=== PATIENT | male | born 1985 | race Caucasian/White ===

== ENCOUNTER 2016-05-01 22:32 | Outpatient (CLI) | payer OTHER | END 2016-05-01 22:33 | disposition home or self-care (01) | DX: G47.33 Obstructive sleep apnea (adult) (pediatric) (principal); Z68.26 Body mass index [BMI] 26.0-26.9, adult ==

== ENCOUNTER 2016-06-09 14:08 | Outpatient (CLI) | payer OTHER | END 2016-06-09 14:09 | disposition home or self-care (01) | DX: G47.33 Obstructive sleep apnea (adult) (pediatric) (principal) ==

== ENCOUNTER 2016-11-25 17:08 | Outpatient (CLI) | payer OTHER ==
[2016-12-02 18:17] LABS: TEST RESULT REPORT (())
== END 2016-11-25 17:09 | disposition home or self-care (01) ==
LOC: LAB 17:08
PROVIDERS: ATTEND Internal Medicine
DX: T14.8 Other injury of unspecified body region (principal)
CPT/HCPCS: 36415; 81599; 86618

== ENCOUNTER → 2016-11-25 | Outpatient (CLI) | payer OTHER | LOC: LAB 08:00 | PROVIDERS: ATTEND Internal Medicine | DX: T14.8 Other injury of unspecified body region (principal) | CPT/HCPCS: 86617 ==

== ENCOUNTER 2017-04-06 07:54 | Outpatient (CLI) | payer BC ==
[2017-04-06 08:28] LABS: CHOL/HDL RATIO 3.9 (<5.0); CHOLESTEROL 221 mg/dL; HDL CHOLESTEROL 56 mg/dL; LDL/HDL RATIO 2.4 (<3.6); TRIGLYCERIDES 141 mg/dL; VLDL CHOLESTEROL 28 mg/dL
== END 2017-04-06 07:55 | disposition home or self-care (01) ==
LOC: LAB 07:54
PROVIDERS: ATTEND Internal Medicine
DX: E55.9 Vitamin D deficiency, unspecified (principal); Z79.899 Other long term (current) drug therapy; E78.5 Hyperlipidemia, unspecified; A69.20 Lyme disease, unspecified
CPT/HCPCS: 36415; 80061; 82306; 86617

== ENCOUNTER 2019-04-19 14:12 | Outpatient (CLI) | payer BC ==
--- NOTE | 2019-04-20 09:21 | XRAY Report ---
Reason: PAIN IN LEFT HAND, LOCALIZED SWELLING Procedure Date: 04/19/2019 Accession Number: [id number] / [id number] Procedure: XR - Hand 2 View LT CPT Code: Final Report FULL RESULT: EXAM: LEFT HAND RADIOGRAPHY EXAM DATE: 04/19/2019 02:27 PM. CLINICAL HISTORY: PAIN IN LEFT HAND, LOCALIZED SWELLING. 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 COMPARISON: None. TECHNIQUE: 2 views. FINDINGS: Bones: Normal. No fractures or bone lesions. Joints: Normal. No subluxations. Soft Tissues: Normal. No soft tissue swelling. IMPRESSION: Normal hand 2 view radiography. [facility]
== END 2019-04-19 14:13 | disposition home or self-care (01) ==
LOC: DI 14:12
PROVIDERS: ATTEND Family Medicine
DX: M79.642 Pain in left hand (principal)

== ENCOUNTER 2019-06-17 08:13 | Outpatient (CLI) | payer BC ==
[2019-06-17 08:40] LABS: BASOPHILS % (AUTO) 0.6 %; EOSINOPHILS # (AUTO) 0.2 10^3/uL (0.0-0.7); EOSINOPHILS % (AUTO) 3.8 %; HGB - HEMOGLOBIN 15.6 g/dL (14.0-18.0); MEAN CORPUSCULAR HEMOGLOBIN 28.9 pg (27.0-31.0); MEAN CORPUSCULAR HGB CONC 33.3 g/dL (32.0-36.0); MEAN CORPUSCULAR VOLUME 86.7 fL (80.0-94.0); MEAN PLATELET VOLUME 8.8 fL (7.4-11.4); MONOCYTES # (AUTO) 0.6 10^3/uL (0.0-1.0); NEUTROPHILS # (AUTO) 2.5 10^3/uL (1.5-6.6); NEUTROPHILS % (AUTO) 46.4 %; PLT - PLATELET COUNT 236 10^3/uL (130-450); RED CELL DISTRIBUTION WIDTH 13.6 % (12.0-15.0); WHITE BLOOD COUNT 5.3 x10^3/uL (4.8-10.8)
[2019-06-17 08:56] LABS: ALBUMIN 4.5 g/dL (3.2-5.5); ALBUMIN/GLOBULIN RATIO 1.6 (1.0-2.2); ALKALINE PHOSPHATASE 77 IU/L (42-121); ALT ALANINE AMINOTRANSFERASE 44 IU/L (10-60); AST ASPARTATE AMINOTRANSFERASE 23 IU/L (10-42); BILIRUBIN,TOTAL 1.6 mg/dL (0.2-1.0); BUN - BLOOD UREA NITROGEN 17 mg/dL (6-20); CALCIUM 9.2 mg/dL (8.5-10.3); CARBON DIOXIDE - CO2 28 mmol/L (21-32); CHLORIDE 103 mmol/L (101-111); CHOL/HDL RATIO 4.9 (<5.0); CHOLESTEROL 216 mg/dL; GFR - MDRD 86 (>89); GLUCOSE 100 mg/dL (70-100); HDL CHOLESTEROL 44 mg/dL; LDL CHOLESTEROL,CALCULATED 148 mg/dL; LDL/HDL RATIO 3.4 (<3.6); SODIUM 139 mmol/L (135-145); TOTAL PROTEIN 7.3 g/dL (6.7-8.2); VLDL CHOLESTEROL 24 mg/dL
== END 2019-06-17 08:14 | disposition home or self-care (01) ==
LOC: LAB 08:13
PROVIDERS: ATTEND Family Medicine
DX: G47.33 Obstructive sleep apnea (adult) (pediatric) (principal); E78.5 Hyperlipidemia, unspecified
CPT/HCPCS: 36415; 80053; 80061; 83721; 84443; 85025

== ENCOUNTER 2020-01-25 13:26 | Outpatient (CLI) | payer OTHER ==
[2020-01-25 14:11] VITALS: BP 107/64
--- NOTE | 2020-01-25 14:11 | SLEEP CARE CONSULTATION ---
Information from patient questionnaire entered by Christiane Galvan. I have reviewed and concur with the information entered by Christiane Galvan. This document represents the service I personally performed and the decisions made by me, Berna Ambrosio ARNP. History of Present Illness Service Date and Time: 01/25/2020 1326 Reason for Visit: New patient, Previously diagnosed sleep apnea (mild - AHI 6.4) Chief Complaint: reports: Unrefreshed sleep, Snoring, Observed pauses in breathing, Other (breathing problems, don't sleep well; previously diagnosed 3 yrs, positional therapy). denies: Insomnia, Excessive daytime sleepiness, Fatigue, Frequent awakenings at night Date of Onset: 5 years maybe Usual bedtime: 10 pm Time it takes to fall asleep: not long at all Snores at night: Yes Observed to quit breathing while asleep: Yes Sleeps alone due to snoring: No Number of times waking at night: a couple Reasons for waking at night: reports: Other (not sure). denies: Choking, Snoring, Gasping for air Toss, Turn, or Twitch while sleeping: Yes Recalls having dreams: No (not often) Usually gets out of bed at: 5:30 am Feels refreshed in the morning: No Morning headache: No Sleepy or fatigued during the day: Yes Ever fallen asleep while driving: No Takes day naps: No Dreams during day naps: No Prior sleep studies: Yes Year and Where: 2016 - [facility] Type of Sleep Study: Polysomnography Additional HPI information: I had the pleasure of seeing DARRYL DOWNING today regarding the possibility of him having a sleep disorder. His current complaints are snoring, breathing problems and not sleeping well. He states 3 years ago he had a sleep study done here at [facility] and was found to have mild obstructive sleep apnea. He states he opted to sleep on his side since he was not as bad when sleeping non-supine. He comes in today because he has difficulty staying on his side. His is having to prod him in the middle of night due to snoring on his back and pauses in breathing. He states he has not been waking up choking or gasping for air like he used to but he does have heartburn. He was recently started on a medication for heartburn by his PCP because it was becoming more severe. He thinks it might be omeprazole. He is otherwise healthy. - Parasomnia Symptoms Ever been unable to move upon waking from sleep: No Walks in sleep: No Talks in sleep: No Ever acted out dreams in sleep: No Ever felt weak in the knees when startled or emotional: No Bothered by creepy, crawly, restless sensations in legs: No Problems with memory or concentration: No Subjective Initial Dal[place] Sleepiness Scale score: 2 (in 2016) Current Dal[place] Sleepiness Scale score: 9 Past Medical History Past Medical History: denies: Hypertension, Congestive Heart Failure, Diabetes, Coronary Heart Disease, Arrythmia, Hypothyroidism, Anemia, Anxiety, Impotence, Depression, Mood disorder, GERD (unsure but just started heartburn medication), Attention deficit Social History The patient's occupation is a TEACHER. Patient is and lives in [place]. Have you smoked in the past 12 months: No Alcohol use: Yes Alcohol amount and frequency: 1 drink once a week Caffeine use: Yes Caffeine amount and frequency: morning coffee, a big mug and occasional tea in afternoon Family History Family history of sleep disordered breathing: No Allergies and Home Medications Drug allergies reviewed: Yes (NKDA) Home medication list reviewed: Yes (something for heartburn, omeprazole) Review of Systems Weight gain over past 5 years: a few Cardiovascular: denies: high blood pressure, palpitations, chest pain, irregular heart rate or pulse, leg or foot swelling Respiratory: denies: shortness of breath, chronic cough Gastrointestinal: reports: heartburn. denies: difficulty swallowing Urinary: denies: impotence Neurological: reports: headaches. denies: seizure, head trauma, speech dysfunction, gait or balance problems, fainting or unconsciousness Psychiatric: denies: Attention Deficit Hyperactivity, anxiety, depression, mood disorder, claustrophobia Ear/Nose/Throat: reports: nasal congestion, sinus problems, injury to nose (had surgery to fix after fracture, 2000), wisdom teeth removed (2 out of 4). denies: nose bleeds, dry mouth/throat, tonsillectomy Endocrine: denies: thyroid disease Musculoskeletal: denies: muscle pain or cramping Immunologic: reports: allergies to food or environment (seasonal, spring) Physical Exam Blood Pressure: 107/64 Cuff size: wrist Heart Rate: 90 O2 Saturation: 99 Height: 6 ft Weight: 197 lb Body Mass Index: 26.7 BMI Classification: Overweight HEENT: No craniofacial malformation Nostrils: patent to airflow Turbinates: normal Septum: midline Mouth and throat: narrow oropharynx Soft palate: normal Hard palate: arched Uvula: normal Uvula visualization: 25% Mallampati Class III Tongue: enlarged in size with teeth butcher on lateral edges Tonsils: 1+ Chin and jaw: normal size and position Neck: normal w/o lymphadenopathy or thyromegaly Heart: regular rate and rhythm Lungs: clear bilaterally Impression and Plan 1. Suspected Obstructive Sleep Apnea-Hypopnea Syndrome, as previously diagnosed in 2017 and as suggested by a history of loud and irregular snoring, observed cessation of breath while asleep, and unrefreshed sleep. Previous study showed an average AHI 6.4 with a supine AHI of 12.8 and non-supine AHI of 0.7. Patient would like re-evaluation as he is considering starting CPAP therapy for his apnea since it is very hard to stay non-supine while sleeping. I recommend proceeding to polysomnography to confirm the diagnosis and to assess severity. If the patient has significant sleep disordered breathing, a manual CPAP titration study will also be performed to find the optimal treatment pressure. I informed the patient of what the sleep studies involve and after some discussion, obtained agreement to proceed. The pathophysiology of obstructive sleep apnea-hypopnea syndrome was discussed with the patient and health risks of cardiovascular and cerebrovascular disease if not treated. Risks of drowsy driving discussed in detail and patient advised to avoid long distance driving and to ice puller at the first sign of drowsiness. Patient agreed to plan. * Schedule polysomnography +- manual CPAP titration study. * Avoid long distance driving or driving when feeling sleepy. * Avoid alcohol, sedative and muscle relaxant around bedtime. * Attempt to lose weight. * Review instructions provided by trained office staff on how to prepare for the sleep study. * Return for follow-up after sleep study completed. Counseling Topics: Weight loss health impact Time Spent with Patient (minutes): 30
== END 2020-01-25 13:27 | disposition home or self-care (01) ==
LOC: SC 13:26
PROVIDERS: ATTEND Nurse Practitioner Family
DX: G47.33 Obstructive sleep apnea (adult) (pediatric) (principal); E66.3 Overweight; Z68.26 Body mass index [BMI] 26.0-26.9, adult
CPT/HCPCS: 99203; 99212

== ENCOUNTER 2020-08-04 08:49 | Outpatient (CLI) | payer OTHER ==
[2020-08-04 09:14] LABS: BASOPHILS % (AUTO) 0.4 %; EOSINOPHILS # (AUTO) 0.1 10^3/uL (0.0-0.7); EOSINOPHILS % (AUTO) 2.5 %; HCT - HEMATOCRIT 46.9 % (42.0-52.0); HGB - HEMOGLOBIN 15.5 g/dL (14.0-18.0); LYMPHOCYTES # (AUTO) 2.2 10^3/uL (1.5-3.5); LYMPHOCYTES % (AUTO) 45.3 %; MEAN CORPUSCULAR HEMOGLOBIN 28.9 pg (27.0-31.0); MEAN CORPUSCULAR VOLUME 87.3 fL (80.0-94.0); MONOCYTES # (AUTO) 0.5 10^3/uL (0.0-1.0); MONOCYTES % (AUTO) 9.3 %; NEUTROPHILS # (AUTO) 2.1 10^3/uL (1.5-6.6); NEUTROPHILS % (AUTO) 42.3 %; PLT - PLATELET COUNT 231 10^3/uL (130-450); RED BLOOD COUNT 5.37 10^6/uL (4.70-6.10); RED CELL DISTRIBUTION WIDTH 12.9 % (12.0-15.0); WHITE BLOOD COUNT 4.9 x10^3/uL (4.8-10.8)
[2020-08-04 09:34] LABS: ALBUMIN/GLOBULIN RATIO 2.4 (1.0-2.2); ALKALINE PHOSPHATASE 56 IU/L (42-121); ALT ALANINE AMINOTRANSFERASE 27 IU/L (10-60); AST ASPARTATE AMINOTRANSFERASE 19 IU/L (10-42); BILIRUBIN,TOTAL 1.9 mg/dL (0.2-1.0); BUN - BLOOD UREA NITROGEN 18 mg/dL (6-20); CALCIUM 9.5 mg/dL (8.5-10.3); CARBON DIOXIDE - CO2 27 mmol/L (21-32); CHLORIDE 104 mmol/L (101-111); CHOL/HDL RATIO 4.3 (<5.0); CHOLESTEROL 226 mg/dL; GFR - MDRD 85 (>89); GLUCOSE 102 mg/dL (70-100); HDL CHOLESTEROL 52 mg/dL; LDL CHOLESTEROL,CALCULATED 157 mg/dL; POTASSIUM 4.4 mmol/L (3.5-5.0); SODIUM 140 mmol/L (135-145); TOTAL PROTEIN 7.1 g/dL (6.7-8.2); TRIGLYCERIDES 85 mg/dL; VLDL CHOLESTEROL 17 mg/dL
[2020-08-04 09:45] LABS: THYROID STIMULATING HORMONE 1.74 uIU/mL (0.34-5.60)
== END 2020-08-04 08:50 | disposition home or self-care (01) ==
LOC: LAB 08:49
PROVIDERS: ATTEND Family Medicine
DX: I49.9 Cardiac arrhythmia, unspecified (principal); G47.33 Obstructive sleep apnea (adult) (pediatric); E55.9 Vitamin D deficiency, unspecified; J30.9 Allergic rhinitis, unspecified
CPT/HCPCS: 36415; 80053; 80061; 83721; 84443; 85025

== ENCOUNTER 2022-01-05 08:00 | Outpatient (CLI) | payer OTHER ==
--- NOTE | 2022-01-05 13:01 | XRAY Report ---
PROCEDURE: Foot 3 View RT INDICATIONS: right foot pain TECHNIQUE: 3 views of the foot were acquired. COMPARISON: None FINDINGS: Bones: No fractures or dislocations. No suspicious bony lesions. Mild first MTP osteoarthritis. Soft tissues: No tibiotalar joint effusion. Achilles tendon appears normal. IMPRESSION: No acute radiographic abnormality. Mild first MTP osteoarthritis. If there is high concern for internal controls manager al derangement, consider MRI. Reviewed by: Fernando Starr MD on 01/05/2022 1:00 PM PDT Approved by: Fernando Starr MD on 01/05/2022 1:00 PM PDT Station ID: [id number]
== END 2022-01-05 23:59 | disposition home or self-care (01) ==
LOC: DI.WOS 08:00
PROVIDERS: ATTEND Physician Assistant
DX: M19.071 Primary osteoarthritis, right ankle and foot (principal)